=== PATIENT | male | born 1995 | race American Indian/Alaskan Native ===

== ENCOUNTER 2025-07-16 22:27 | Emergency (ER) | payer SELFPAY ==
[2025-07-16] MEDS: Diphtheria,Pertussis(Acell),Tetanus Vaccine 0.5 ML Syringe IM ONE (23:25)
== END 2025-07-17 00:23 | disposition home or self-care (01) ==
LOC: MW.ED 22:27
DX: S61.512A Laceration without foreign body of left wrist, initial encounter (principal); Z23 Encounter for immunization; Z91.09 Other allergy status, other than to drugs and biological substances; W26.8XXA Contact with other sharp object(s), not elsewhere classified, initial encounter
CPT/HCPCS: 12005; 90471; 90715; 99283-25; 99284

== ENCOUNTER 2025-07-30 12:29 | Emergency (ER) | payer SELFPAY | END 2025-07-30 13:02 | disposition left against medical advice (07) | LOC: MW.ED 12:29 | DX: S51.812D Laceration without foreign body of left forearm, subsequent encounter (principal); X58.XXXD Exposure to other specified factors, subsequent encounter | CPT/HCPCS: 99281 ==